=== PATIENT | female | born 1950 | race Caucasian/White ===

== ENCOUNTER 2019-11-22 10:39 | Inpatient (IN) | payer BC ==
[~2019-11-22] VITALS: Ht 167.6 cm; Wt 78.2 kg
[2019-11-22] MEDS ORDERED: DILTIAZEM 5 MG/ML, 5ML IVPush STA (11:03)
--- NOTE | 2019-11-22 11:09 | NUR ---
FIRST CONTACT WITH PT. PT STATED "JUST NOT FEELING WELL THIS MORNING" KEENAN LE LEG SWELLING(+2 EDEMA), A TIGHTNESS IN MY CHEST. S/P AORTIC ARCH ANEURYSM REPAIR 2010. PT'S AOX4. RESPS EVEN AND UNLABORED. PT DENIES CP/SOB/N/V/PALPITATION AT THIS TIME. A-FIB RATE 110-150'S ON CARDIAC MONITORS AT THIS TIME. ALL MONITORS IN PLACE. CALL LIGHT WITHIN REACH. EDMD AT BEDSIDE TO EVALUATE AT THIS TIME.
[2019-11-22] MEDS ORDERED: DILTIAZEM 5 MG/ML, 5ML ONE (11:13)
[2019-11-22] MEDS ORDERED: ASPIRIN 81 MG TABLET CHEW ONE (11:13)
--- NOTE | 2019-11-22 11:23 | NUR ---
piv est on r hand with no complications. pt medicated per emar. pt tolerated well.
[2019-11-22] MEDS ORDERED: SODIUM CHLORIDE FLUSH 10ML SYR IVF ONE (11:30)
[2019-11-22] MEDS ORDERED: ASPIRIN 81 MG TABLET CHEW PO ONE (11:30)
[2019-11-22 11:40] LABS: BASOPHILS # (AUTO) 0.04 x10^3/uL (0-0.1); BASOPHILS % (AUTO) 1 % (0-1); EOSINOPHILS # (AUTO) 0.08 x10^3/uL (0-0.4); EOSINOPHILS % (AUTO) 1 % (1-7); LYMPHOCYTES # (AUTO) 1.29 x10^3/uL (1-3.4); LYMPHOCYTES % (AUTO) 19 % (22-44); MD NO; MEAN CORPUSCULAR HEMOGLOBIN 31.7 pg (27.0-34.8); MEAN CORPUSCULAR HGB CONC 32.1 g/dL (32.4-35.8); MEAN CORPUSCULAR VOLUME 98.5 fL (80-100); MEAN PLATELET VOLUME 7.8 fL (7.4-10.4); MONOCYTES % (AUTO) 7 % (2-9); NEUTROPHILS # (AUTO) 4.89 x10^3/uL (1.8-6.8); NEUTROPHILS % (AUTO) 72 % (42-75); PLATELET COUNT 225 x10^3/uL (130-400); RED BLOOD COUNT 4.74 x10^6/uL (3.82-5.3); RED CELL DISTRIBUTION WIDTH 15.7 % (9.6-15.2)
[2019-11-22 11:42] LABS: ALANINE AMINOTRANSFERASE 54 U/L (12-78); ALBUMIN 3.2 g/dL (3.4-5.0); ANION GAP 9 mmol/L (5-15); CALCIUM 8.7 mg/dL (8.5-10.1); CHLORIDE 105 mmol/L (98-107); CREATININE 0.69 mg/dL (0.55-1.02); D-DIMER 1.61 ug/mlFEU (0.00-0.52)
[2019-11-22 11:43] LABS: INTERNATIONAL NORMALIZED RATIO 1.01 (0.93-1.1); PROTHROMBIN TIME 10.7 Seconds (9.6-11.5)
[2019-11-22 11:47] LABS: ALKALINE PHOSPHATASE 65 U/L (45-117); BILIRUBIN,TOTAL 0.6 mg/dL (0.2-1.0); TOTAL PROTEIN 6.3 g/dL (6.4-8.2); TROPONIN I < 0.015 ng/mL (0.000-0.045)
--- NOTE | 2019-11-22 12:01 | NUR ---
US BEING DONE AT BS. PT WITH NO OBVIOUS SIGNS OF DISTRESS. Addendum: 11/22/19 at 1202 by HBENSON (BREAK RN)
--- NOTE | 2019-11-22 12:44 | NUR ---
PT AMB TO BR WITH STEADY GAIT.
--- NOTE | 2019-11-22 13:04 | NUR ---
PT BACK TO ROOM FROM WITH STEADY GAIT. PT'S AOX4. RESPS EVEN AND UNLABORED. ALL MONITORS IN PLACE. CALL LIGHT WITHIN REACH.
--- NOTE | 2019-11-22 13:48 | NUR ---
pt resting in [facility]. pt's aox4. resps even and unlabored. all monitors in place. call light within reach.
[2019-11-22] MEDS ORDERED: OMNIPAQUE 350 MG/ML, 75ML BOTTLE ONE (13:52)
--- NOTE | 2019-11-22 14:25 | NUR ---
PT AMB TO BR WITH STEADY GAIT AT THIS TIME.
--- NOTE | 2019-11-22 14:42 | NUR ---
PT BACK TO ROOM FROM WITH STEADY GAIT. PT'S AOX4. RESPS EVEN AND UNLABORED. ALL MONITORS IN PLACE. CALL LIGHT WITHIN REACH.
[2019-11-22] MEDS ORDERED: FUROSEMIDE 20 MG/2 ML ONE (15:17)
--- NOTE | 2019-11-22 15:20 | NUR ---
pt medicated per emar. pt tolerated well.
[2019-11-22] MEDS ORDERED: FUROSEMIDE 20 MG/2 ML IV ONE (15:30)
--- NOTE | 2019-11-22 15:37 | NUR ---
PT AMB TO BR WITH STEADY GAIT. PT'S AOX4. RESPS EVEN AND UNLABORED.
[2019-11-22] MEDS ORDERED: APIXABAN 5 MG TABLET ONE (15:53)
[2019-11-22] MEDS ORDERED: FLUT12HF2 INH (15:55)
[2019-11-22] MEDS ORDERED: DAPA10TA PO (15:56)
[2019-11-22] MEDS ORDERED: EZET10TA70 PO (15:56)
[2019-11-22] MEDS ORDERED: LISI-170 PO (15:57)
[2019-11-22] MEDS ORDERED: IPRA3AMP30 INH (15:57)
[2019-11-22] MEDS ORDERED: LEVO112T2 PO (15:58)
[2019-11-22] MEDS ORDERED: METO25TA35 PO (15:58)
[2019-11-22] MEDS ORDERED: METF500T17 PO (15:58)
--- NOTE | 2019-11-22 15:59 | NUR ---
pt medicated per emar. pt tolerated well. pt's aox4. resps even and unlabored.
[2019-11-22] MEDS ORDERED: APIXABAN 5 MG TABLET PO ONE (16:00)
--- NOTE | 2019-11-22 16:19 | NUR ---
MED ORDERED FROM PHARMACY AT THIS TIME.
[2019-11-22] MEDS ORDERED: PROMETHAZINE 25 MG/ML, 1ML IM PRN (16:30)
[2019-11-22] MEDS ORDERED: OXYcodone IR 5MG TABLET PO PRN (16:30)
[2019-11-22] MEDS ORDERED: ONDANSETRON ODT 4 MG PO PRN (16:30)
[2019-11-22] MEDS ORDERED: POLYETHYLENE GLYCOL 17 GM PACKET PO PRN (16:30)
[2019-11-22] MEDS ORDERED: ACETAMINOPHEN 325 MG TABLET PO PRN (16:30)
[2019-11-22] MEDS ORDERED: DOCUSATE 100 MG CAPSULE PO PRN (16:30)
[2019-11-22] MEDS ORDERED: morphine SULFATE 10 MG/ML, 1ML IVPush PRN (16:30)
[2019-11-22] MEDS ORDERED: BISACODYL 10 MG SUPP PR PRN (16:30)
[2019-11-22] MEDS ORDERED: LABETALOL 5MG/ML, 20ML IVPush PRN (16:30)
[2019-11-22] MEDS ORDERED: ONDANSETRON 2MG/ML, 2ML IVPush PRN (16:30)
[2019-11-22] MEDS: DILTIAZEM 125 MG in SODIUM CHLORIDE 0.9% 100 ML IV SCH (16:40)
--- NOTE | 2019-11-22 16:44 | NUR ---
cardizem infusing at this time. pt tolerated well.
[2019-11-22] MEDS ORDERED: FUROSEMIDE 20 MG/2 ML IV SCH (17:00)
--- NOTE | 2019-11-22 17:05 | NUR ---
REPORT GIVEN TO KAIT ASH. ALL QEUSTIONS ANSWERED.
[2019-11-22 19:36] LABS: MICROSCOPIC NOT IND
[2019-11-22 20:04] VITALS: BP 105/66
[2019-11-22] MEDS: LISINOPRIL 20 MG TABLET PO SCH (21:00)
[2019-11-22] MEDS: METOPROLOL TARTRATE 50 MG TAB PO SCH (21:00)
[2019-11-22 21:05] VITALS: BP 109/71
[2019-11-22] MEDS: INSULIN LISPRO 100 UNITS/ML, PEN SQ-INSULIN SCH (22:26)
[2019-11-23 00:36] VITALS: BP 106/61
[2019-11-23] MEDS: DILTIAZEM 125 MG in SODIUM CHLORIDE 0.9% 100 ML IV SCH (03:57)
[2019-11-23 03:58] VITALS: BP 117/72
[2019-11-23] MEDS: LEVOTHYROXINE 112 MCG TABLET PO SCH (06:00)
[2019-11-23 06:10] LABS: BASOPHILS # (AUTO) 0.02 x10^3/uL (0-0.1); BASOPHILS % (AUTO) 1 % (0-1); EOSINOPHILS # (AUTO) 0.11 x10^3/uL (0-0.4); EOSINOPHILS % (AUTO) 3 % (1-7); LYMPHOCYTES # (AUTO) 0.86 x10^3/uL (1-3.4); LYMPHOCYTES % (AUTO) 20 % (22-44); MD NO; MEAN CORPUSCULAR HEMOGLOBIN 31.8 pg (27.0-34.8); MEAN CORPUSCULAR HGB CONC 32.4 g/dL (32.4-35.8); MEAN CORPUSCULAR VOLUME 98.2 fL (80-100); MONOCYTES # (AUTO) 0.53 x10^3/uL (0.2-0.8); MONOCYTES % (AUTO) 12 % (2-9); NEUTROPHILS # (AUTO) 2.89 x10^3/uL (1.8-6.8); NEUTROPHILS % (AUTO) 66 % (42-75); PLATELET COUNT 192 x10^3/uL (130-400); RED BLOOD COUNT 4.45 x10^6/uL (3.82-5.3)
[2019-11-23 06:15] LABS: ALBUMIN 2.9 g/dL (3.4-5.0); ANION GAP 7 mmol/L (5-15); CALCIUM 8.5 mg/dL (8.5-10.1); CHLORIDE 104 mmol/L (98-107)
[2019-11-23 06:20] LABS: ALANINE AMINOTRANSFERASE 47 U/L (12-78); ALKALINE PHOSPHATASE 58 U/L (45-117); BILIRUBIN,TOTAL 0.9 mg/dL (0.2-1.0); CHOL/HDL RATIO 2.6; CHOLESTEROL, TOTAL 151 mg/dL (140-239); HDL CHOL % 39 % (28-40); HDL CHOLESTEROL (DIRECT) 59 mg/dL (40-60); LDL CHOLESTEROL,CALCULATED 79 mg/dL (54-169); LDL/HDL RATIO 1.3 (0.5-3.0); TOTAL PROTEIN 5.6 g/dL (6.4-8.2); TRIGLYCERIDES 66 mg/dL (50-200); VLDL CHOLESTEROL 13 mg/dL (0-25)
[2019-11-23 06:38] VITALS: BP 123/75
[2019-11-23] MEDS ORDERED: POTASSIUM CHLORIDE 20 MEQ TAB.ER.PRT PO ONE (07:00)
[2019-11-23] MEDS: INSULIN LISPRO 100 UNITS/ML, PEN SQ-INSULIN SCH ×4 (07:00→21:23)
[2019-11-23] MEDS ORDERED: FUROSEMIDE 20 MG/2 ML IV SCH (07:30)
[2019-11-23] MEDS ORDERED: LISINOPRIL 10 MG TABLET ONE (07:42)
[2019-11-23] MEDS: METOPROLOL TARTRATE 50 MG TAB PO SCH (07:50)
[2019-11-23] MEDS: EZETIMIBE 10 MG TABLET PO SCH (07:50)
[2019-11-23] MEDS: APIXABAN 5 MG TABLET PO SCH ×2 (07:50→21:22)
[2019-11-23] MEDS: LISINOPRIL 20 MG TABLET PO SCH ×2 (07:51→21:22)
[2019-11-23 08:37] LABS: TROPONIN I < 0.015 ng/mL (0.000-0.045)
[2019-11-23] MEDS ORDERED: ALBUTEROL/IPRATROPIUM 2.5MG/0.5MG, 3 ML NEB SCH (09:00)
[2019-11-23] MEDS ORDERED: PROPOFOL 10 MG/ML, 20ML ONE (12:55)
[2019-11-23 14:35] VITALS: BP 109/61
[2019-11-23] MEDS ORDERED: DILTIAZEM 125 MG in SODIUM CHLORIDE 0.9% 100 ML IV SCH (16:00)
[2019-11-23] MEDS: SOTALOL 80MG TABLET PO SCH (17:43)
[2019-11-23 21:03] VITALS: BP 124/77
[2019-11-24 02:05] VITALS: BP 145/91
[2019-11-24 05:30] LABS: ANION GAP 3 mmol/L (5-15); CALCIUM 8.4 mg/dL (8.5-10.1); CHLORIDE 104 mmol/L (98-107)
[2019-11-24 05:32] LABS: CREATININE 0.71 mg/dL (0.55-1.02)
[2019-11-24 05:59] VITALS: BP 152/88
[2019-11-24] MEDS: SOTALOL 80MG TABLET PO SCH ×2 (06:02→18:14)
[2019-11-24] MEDS: LEVOTHYROXINE 112 MCG TABLET PO SCH (06:02)
[2019-11-24] MEDS: INSULIN LISPRO 100 UNITS/ML, PEN SQ-INSULIN SCH ×4 (07:00→21:37)
[2019-11-24] MEDS ORDERED: REGADENOSON 0.4 MG/5 ML SYRINGE ONE (08:29)
[2019-11-24 09:00] VITALS: BP 139/75
[2019-11-24] MEDS ORDERED: FUROSEMIDE 20 MG TABLET PO SCH (09:00)
[2019-11-24] MEDS ORDERED: LISINOPRIL 10 MG TABLET ONE ×2 (09:47→21:18)
[2019-11-24] MEDS: EZETIMIBE 10 MG TABLET PO SCH (10:13)
[2019-11-24] MEDS: APIXABAN 5 MG TABLET PO SCH ×2 (10:13→21:34)
[2019-11-24] MEDS: LISINOPRIL 20 MG TABLET PO SCH ×2 (10:14→21:34)
[2019-11-24 13:31] VITALS: BP 129/84
[2019-11-24] MEDS ORDERED: POTASSIUM CHLORIDE 10 MEQ TABLET.ER PO SCH (15:30)
[2019-11-24] MEDS: CHLORTHALIDONE 25 MG TABLET PO SCH (15:58)
[2019-11-24 21:10] VITALS: BP 114/64
[2019-11-25 02:35] VITALS: BP 130/77
[2019-11-25 06:10] VITALS: BP 134/77
[2019-11-25] MEDS: SOTALOL 80MG TABLET PO SCH ×2 (06:13→18:36)
[2019-11-25] MEDS: LEVOTHYROXINE 112 MCG TABLET PO SCH (06:13)
[2019-11-25 06:22] LABS: ANION GAP 3 mmol/L (5-15); CALCIUM 8.5 mg/dL (8.5-10.1); CHLORIDE 102 mmol/L (98-107)
[2019-11-25] MEDS: INSULIN LISPRO 100 UNITS/ML, PEN SQ-INSULIN SCH ×4 (06:57→20:12)
[2019-11-25] MEDS ORDERED: LISINOPRIL 10 MG TABLET ONE ×2 (08:18→20:06)
[2019-11-25] MEDS: EZETIMIBE 10 MG TABLET PO SCH (08:46)
[2019-11-25] MEDS: CHLORTHALIDONE 25 MG TABLET PO SCH (08:46)
[2019-11-25] MEDS: APIXABAN 5 MG TABLET PO SCH ×2 (08:46→20:11)
[2019-11-25] MEDS: LISINOPRIL 20 MG TABLET PO SCH ×2 (08:46→20:12)
[2019-11-25 09:20] VITALS: BP 114/64
[2019-11-25 14:35] VITALS: BP 120/69
[2019-11-25] MEDS ORDERED: POTASSIUM CHLORIDE 20 MEQ TAB.ER.PRT PO ONE (15:30)
[2019-11-25 19:10] VITALS: BP 104/62
[2019-11-26 01:22] VITALS: BP 133/76
[2019-11-26 05:58] VITALS: BP 153/80
[2019-11-26] MEDS: LEVOTHYROXINE 112 MCG TABLET PO SCH (06:01)
[2019-11-26] MEDS: SOTALOL 80MG TABLET PO SCH (06:02)
[2019-11-26] MEDS: INSULIN LISPRO 100 UNITS/ML, PEN SQ-INSULIN SCH ×2 (07:00→11:00)
[2019-11-26] MEDS ORDERED: LISINOPRIL 10 MG TABLET ONE (08:20)
[2019-11-26] MEDS: LISINOPRIL 20 MG TABLET PO SCH (08:50)
[2019-11-26] MEDS: CHLORTHALIDONE 25 MG TABLET PO SCH (08:50)
[2019-11-26] MEDS: EZETIMIBE 10 MG TABLET PO SCH (08:50)
[2019-11-26] MEDS: APIXABAN 5 MG TABLET PO SCH (08:50)
[2019-11-26 08:53] VITALS: BP 110/63
[2019-11-26 09:30] VITALS: BP 118/85
[2019-11-26] MEDS ORDERED: SOTA80TA18 PO (13:27)
[2019-11-26] MEDS ORDERED: APIX5TAB PO (13:27)
[2019-11-26] MEDS ORDERED: CHLO25TA PO (13:27)
== END 2019-11-26 14:44 | disposition home or self-care (01) | DRG 308 ==
LOC: ED 12:30 → EDIP 16:02 → 5SO 17:16 → DCLOUNGE 11-26 14:38
PROVIDERS: ADMIT Internal Medicine; ATTEND Internal Medicine
PROC: B24BZZ4 Ultrasonography of Heart with Aorta, Transesophageal (ICD-10-PCS; 2019-11-23)
PROC: 5A2204Z Restoration of Cardiac Rhythm, Single (ICD-10-PCS; principal; 2019-11-23 12:50)
DX: I48.0 Paroxysmal atrial fibrillation (principal); I50.43 Acute on chronic combined systolic (congestive) and diastolic (congestive) heart failure; D68.69 Other thrombophilia; R00.1 Bradycardia, unspecified; I11.0 Hypertensive heart disease with heart failure; E03.9 Hypothyroidism, unspecified; E11.9 Type 2 diabetes mellitus without complications; E78.5 Hyperlipidemia, unspecified; I27.20 Pulmonary hypertension, unspecified; I34.1 Nonrheumatic mitral (valve) prolapse; J45.909 Unspecified asthma, uncomplicated; Z20.828 Contact with and (suspected) exposure to other viral communicable diseases; Z80.1 Family history of malignant neoplasm of trachea, bronchus and lung; Z82.3 Family history of stroke; Z82.49 Family history of ischemic heart disease and other diseases of the circulatory system; Z88.2 Allergy status to sulfonamides
CPT/HCPCS: 36415; 71045; 71275; 76700; 78452; 80048; 80053; 80061; 81003; 82962; 83036; 83605; 83735; 83880; 84439; 84443; 84484; 85025; 85379; 85610; 87635; 93005; 93017; 93306; 93312; 93321; 93325; 93970; 96374; 96375; G0378; J2704; J2785; Q9967; A9502; J1815; J1940